=== PATIENT | female | born 1975 | race Hispanic/Latino ===

== ENCOUNTER 2022-02-06 23:39 | Emergency (ER) | payer BC, OTHER ==
[~2022-02-06] VITALS: Ht 172.7 cm; Wt 111.1 kg
[2022-02-06] MEDS ORDERED: FAMOTIDINE 20 MG/2 ML VIAL IV STA (23:51)
[2022-02-07] MEDS ORDERED: EPINEPHRINE HCL 1:1000 1ML 1 MG/ML AMP INJ ONE
[2022-02-07] MEDS ORDERED: DIPHENHYDRAMINE HCL INJ 50 MG/ML VIAL IV ONE
[2022-02-07] MEDS ORDERED: METHYLPREDNISOLONE SOD SUCC 125 MG/2ML VIAL IV ONE
[2022-02-07] MEDS ORDERED: EPINEPHRINE HCL 1:1000 1ML 1 MG/ML AMP ONE (00:03)
[2022-02-07] MEDS ORDERED: DIPHENHYDRAMINE HCL INJ 50 MG/ML VIAL ONE (00:06)
[2022-02-07] MEDS ORDERED: METHYLPREDNISOLONE SOD SUCC 125 MG/2ML VIAL ONE (00:06)
[2022-02-07] MEDS ORDERED: FAMOTIDINE 20 MG/2 ML VIAL IV ONE (00:07)
[2022-02-07] MEDS ORDERED: PEPCID20 MG PO (00:37)
[2022-02-07] MEDS ORDERED: BENADRYL25 M1 PO (00:37)
[2022-02-07] MEDS ORDERED: EPINEPHRIN0.3 MG/0.3 IM (00:37)
[2022-02-07] MEDS ORDERED: PREDNISONE20 MG PO (00:37)
== END 2022-02-07 01:45 | disposition home or self-care (01) ==
LOC: FSED 23:44
DX: R09.81 Nasal congestion (principal); T78.1XXA Other adverse food reactions, not elsewhere classified, initial encounter; I10 Essential (primary) hypertension; Z98.84 Bariatric surgery status
CPT/HCPCS: 99283; J0171; J1200; J2930